=== PATIENT | male | born 1970 | race Caucasian/White ===

== ENCOUNTER 2020-10-06 14:54 | Emergency (ER) | payer OTHER, SELFPAY ==
--- NOTE | 2020-10-06 14:49 | ECG_ITS ---
APPROVED REPORT Exam: Resting ECG HR:80 bpm ECG Measurements Heart Rate 80 AXES NE 156 P 31 QRSd 94 QRS -27 QT 360 T 65 QTc 415 Conclusion Normal sinus rhythm Septal infarct, age undetermined Abnormal ECG Electronically signed by : Yosi Briggs, 10/07/2020 14:57:23
[2020-10-06 14:55] VITALS: BP 163/105; PULSE 80; RESP 16; TEMP 36.8; O2SAT 98; BMI 26.4
--- NOTE | 2020-10-06 14:59 | [facility].EDCP ---
ED Disposition Clinical Impression: Bronchitis Chest pain Qualifiers: Chest pain type: unspecified Qualified Code(s): R07.9 - Chest pain, unspecified Disposition: Home, Self-Care Condition on Discharge: Good Instructions: DI for Atypical Chest Pain, DI for Acute Bronchitis Additional Instructions: I recommend that you take [id number] antacids as well as Tylenol and ibuprofen for your chest pain. I also strongly recommended you follow-up with your primary care doctor in about 7 days if you do not improve. If your Covid test today turns positive we will call you and inform you of this. Referrals: Lisa Pinedo APRN [Primary Care Provider] - 7-14 days - Critical Care Critical Care Time: No Attestation: On , the high probability of a clinically significant, sudden or life threatening deterioration of the following system(s) required my full and direct attention, intervention and personal management. The time I documented below is in addition to time spent performing reported procedures but includes the following listed in this critical care notation. Medical Decision Making - Medical Records Medical records reviewed: Yes: I reviewed the patient's medical records. - Noah Inquiry Pt receiving controlled substance: No Vital Signs: 10/06/20 14:55 Temperature 98.2 F Temperature Source Oral Pulse Rate [Right] 80 Respiratory Rate 16 Blood Pressure [Right Arm] 163/105 H Blood Pressure Mean [Right Arm] 124 02 Sat by Pulse Oximetry 98 - Lab Data Lab results reviewed: Yes: I reviewed the patient's lab results. Lab Results 10/06/20 14:58: WBC 9.5, RBC 5.00, Hgb 16.3, Hct 47.8, MCV 95.6 H, MCH 32.7 H, MCHC 34.2, RDW 13.3, Plt Count 260, MPV 7.2 L, Neut % (Auto) 68.2, Lymph % (Auto) 22.3, Steele % (Auto) 6.0, Eos % (Auto) 3.0, Baso % (Auto) 0.5, Neut # (Auto) 6.5, Lymph # (Auto) 2.1, Steele # (Auto) 0.6, Eos # (Auto) 0.3, Baso # (Auto) 0.1 10/06/20 14:58: Sodium 137, Potassium 4.0, Chloride 105, Carbon Dioxide 27, Anion Gap 9.0, BUN 16, Creatinine 1.00, Estimated Creat Clear 101, Estimated GFR 80, Est GFR ( Amer) 97, Glucose 109 H, Calcium 9.4, Total Bilirubin 0.5, AST 40, ALT 28, Alkaline Phosphatase 72, Troponin I < 0.01, Total Protein 7.2, Albumin 4.3, Globulin 2.9, Albumin/Globulin Ratio 1.5 Result diagrams: 10/06/20 14:58 10/06/20 14:58 Orders (Tests/Meds): ORDERS Category Date Time Status Covid-19 Nasal PCR ([facility]) Routine Lab 10/06/20 15:08 Received Troponin I Q3H Lab 10/06/20 18:15 Ordered - ECG Data Tracing #1 I reviewed this ECG and interpreted as documented below: EKG performed on 06 October 2020 at 1450. Normal sinus rhythm at 80 bpm no acute ischemia normal axis Q waves in V1 V2 V3 and V4. No acute change from 2018. Normal Sinus Rhythm: Yes ECG compared to prior tracings: there are no significant changes Medical Decision Narrative: The patient presents to the emergency department complaining of intermittent chest pain that is worse at night and when laying flat. It lasts 5 minutes at a time. It has been ongoing for several weeks. The patient also complains of a cough which is nonproductive. He complains of general malaise. On physical examination there is no significant abnormalities noted. The patient's Wells score for pulmonary embolus is low. The patient will be worked up for cardiac etiologies as well as pulmonary etiologies. A Covid swab will be obtained. Patient's EKG is unremarkable. There is no evidence of acute myocardial infarction. The patient's work-up in the emergency department did not reveal any life-threatening or dangerous causes for the patient's symptoms. His well score for pulmonary embolus is low. His heart score for myocardial infarctions/acute coronary syndrome is also low. The patient's chest x-ray does not show any acute disease. There is no evidence of pneumonia. The patient's vital signs are stable and normal now. The patient's Covid
--- NOTE | 2020-10-06 15:11 | XR_ITS ---
PROCEDURE: XR CHEST PORTABLE CLINICAL HISTORY: Chest pain COMPARISON: CR CXR2V XR chest 2V from 11/17/[address] angio chest from 11/17/2017 FINDINGS: Minor subsegmental atelectasis in the left lower zone. Trace left effusion. No lobar consolidation, pleural effusions or pneumothorax. Cardiac size and central pulmonary vasculature are within normal limits. Visualized osseous structures are unremarkable IMPRESSION: Subsegmental atelectasis in the left lower zone. Trace left effusion. Dictated by: Roseanna Escalera 10/06/2020 16:32 Roseanna Escalera in OV 10/06/2020 16:32
[2020-10-06 15:21] LABS: Basophils # 0.1 K/mm3 (0-0.2); Basophils % 0.5 % (0.1-2.0); Eosinophils # 0.3 K/mm3 (0.0-0.4); Hematocrit 47.8 % (42.0-52.0); Hemoglobin 16.3 g/dL (14.1-18.0); Lymphocytes # 2.1 K/mm3 (0.7-4.5); Lymphocytes % 22.3 % (10-50); Mean Corpuscular HGB Conc 34.2 g/dL (31.8-35.4); Mean Corpuscular Hemoglobin 32.7 pg (27.0-31.2); Mean Corpuscular Volume 95.6 fl (80-94); Mean Platelet Volume 7.2 fl (7.4-10.4); Monocytes # 0.6 K/mm3 (0.1-1.0); Neutrophils # 6.5 K/mm3 (1.8-7.8); Neutrophils % 68.2 % (37.0-80.0); Platelet Count 260 K/mm3 (142-424); Red Cell Distribution Width 13.3 % (11.5-17.5); White Blood Count 9.5 K/mm3 (4.8-10.8)
[2020-10-06 15:31] LABS: Chloride 105 mmol/L (98-107); Sodium 137 mmol/L (136-145)
[2020-10-06 15:34] LABS: Alanine Aminotransferase 28 U/L (12-78); Albumin Level 4.3 g/dl (3.5-5.0); Albumin/Globulin Ratio 1.5 (1.1-1.8); Alkaline Phosphatase 72 U/L (38-126); Aspartate Amino Transferase 40 U/L (17-59); Bilirubin,Total 0.5 mg/dl (0.2-1.3); Blood Urea Nitrogen 16 mg/dl (9-20); Carbon Dioxide 27 mmol/L (22.0-30.0); Creatinine Clearance Estimated 101 mL/min (50-200); Estimated Glomerular Filt Rate 80 ml/min (>60); GFR (African American) 97 ML/MIN (>60); Globulin 2.9 g/dL (1.3-3.2); Total Protein,Serum 7.2 g/dl (6.3-8.2)
[2020-10-06 15:35] LABS: Calcium 9.4 mg/dl (8.4-10.2); Glucose 109 mg/dl (74-100)
[2020-10-06 16:00] LABS: Troponin I < 0.01 ng/ml (0.00-0.034)
[2020-10-06 17:23] VITALS: BP 120/68; PULSE 79; RESP 18; TEMP 36.8; O2SAT 99
== END 2020-10-06 17:20 | disposition home or self-care (01) ==
PROVIDERS: Emergency Provider Emergency Medicine; PCP Nurse Practitioner
DX: Z20.822 Contact with and (suspected) exposure to COVID-19 (principal); J20.9 Acute bronchitis, unspecified; F17.210 Nicotine dependence, cigarettes, uncomplicated
CPT/HCPCS: 71045; 80053; 84484; 85025; 93005; 99282; U0003